=== PATIENT | female | born 1975 | race African-American/Black ===

== ENCOUNTER 2020-11-17 19:02 | Emergency (ER) | payer OTHER ==
[~2020-11-17] VITALS: Ht 163.8 cm; Wt 67.3 kg
--- NOTE | 2020-11-17 20:30 | PHYS DOC ---
General Adult EDM: Chief Complaint: CONGESTION HPI: HPI: Patient is a 44-year-old female coming in for congestion, headache, and occasional cough[place] have had been in a house with black mold. Was told by the nursing line to come to the ER for testing. Patient has had a Covid vaccine [place] get a Covid test. Review of Systems: Review of Systems: All other systems within normal limits except for as noted in the HPI Allergies: Allergies: Allergies Coded Allergies Type Severity Reaction Last Updated Verified lisinopril Allergy Unknown 11/17/20 Yes Physical Exam: PE: Constitutional: Well developed, well nourished, no acute distress, non-toxic appearance. [] HENT: Normocephalic, atraumatic, bilateral external ears normal, nose normal. [] Eyes: PERRLA, conjunctiva normal, no discharge. [] Neck: No rigidity, supple, no stridor. [] Cardiovascular: Regular rate and rhythm, brisk cap refill [] Lungs & Thorax: Non labored symmetric respirations, no tachypnea or respiratory distress [] Abdomen: Soft, nondistended. Skin: Warm, dry, no erythema, no rash. [] Back: Unremarkable Extremities: No deformities, range of motion grossly intact, no lower extremity edema [] Neurologic: Alert and oriented X 3, no focal deficits noted. [] Psychologic: Affect normal, judgement normal, mood normal. [] Current Patient Data: Vital Signs: Vital Signs Date Time Temp Pulse Resp B/P (MAP) Pulse Ox O2 Delivery O2 Flow Rate FiO2 11/17/20 19:18 98.1 88 18 135/83 (100) 100 Room Air EKG: EKG: [] Radiology/Procedures: Radiology/Procedures: [address] [address] IMAGING REPORT Signed PATIENT: JOURDAN DALTON LACCOUNT: [id number] : 1975 LOCATION: ER AGE: 44 SEX: F EXAM STATUS: PRE ER ORD. PHYSICIAN: OLGA MARIE MD REASON: cough PROCEDURE: CHEST PA & LATERAL EXAMINATION: Chest radiograph. VIEWS: 2 views COMPARISON: None INDICATION:44 years, Female, cough. FINDINGS: Normal cardiomediastinal silhouette. No focal consolidation. No pleural effusion or pneumothorax. No acute osseous process. IMPRESSION: No acute cardiopulmonary process. Electronically signed by: Angie Swann MD (11/17/2020 9:03 PM) [facility] DICTATED AND SIGNED BY: ANGIE SWANN MD DATE: 11/17/202102 CC: OLGA MARIE MD ~MTH0 0 [] Heart Score: C/O Chest Pain: No Risk Factors: Risk Factors: DM, Current or recent (<one month) smoker, HTN, HLP, family history of CAD, obesity. Risk Scores: Score 0 - 3: 2.5% MACE over next 6 weeks - Discharge Home Score 4 - 6: 20.3% MACE over next 6 weeks - Admit for Clinical Observation Score 7 - 10: 72.7% MACE over next 6 weeks - Early Invasive Strategies Course & Med Decision Making: Course & Med Decision Making Pertinent Labs and Imaging studies reviewed. (See chart for details) [] Dragon Disclaimer: Dragon Disclaimer: This electronic medical record was generated, in whole or in part, using a voice recognition dictation system. Departure Departure: Impression: Primary Impression: Person under investigation for COVID-19 Disposition: 01 HOME / SELF CARE / HOMELESS Condition: STABLE Referrals: [facility] Additional Instructions: You have been tested for or diagnosed with COVID-19. It is an infection caused by a new type of coronavirus. COVID-19 will cause cold-like or mild flu symptoms in most. It can cause more severe symptoms like problems breathing in some. There is no treatment for COVID-19. The body will clear the infection over time. Self-care will help to ease discomfort. Steps to Take: Self-Care Rest as needed. Healthy habits may help you feel better. Steps include: Choose healthy foods including fruits and vegetables. Drink water throughout the day. Get plenty of sleep each night. If you smoke, try to quit. It may ease breathing. Avoid alcohol. Keep Others Healthy The virus can spread to others. Droplets are released every time you sneeze or cough. The droplets can get into the mouth, nose, or eyes of people near you and lead to infection. To lower the chances of spreading COVID-19 to others: Stay at home until your doctor has said it is safe to leave. If you tested positive this will mean staying isolated until both of the following are true: At least 7 days have passed since the start of illness. You are free of fever for at least 72 hours without the use of medicine. During this time: - Avoid public areas, events, or transportation. Do not return to work or school until your doctor has said it is safe to do so. - Call ahead if you need to go to a medical center. Let them know you may have COVID-19. It will help them guide you where to go. They may also ask you to wear a facemask when you come to the office. - If you call for emergency medical services, let them know you may have COVID- 19. While at home: - Try to avoid close contact with others. Stay about 6 feet away. - If possible, spend most of your time in a separate room from others. - Use a face mask if you will be in close contact with others such as sharing a room or vehicle. - Have someone wipe down common surfaces in the home. Use household box printing machine operator every day on areas like doorknobs, counters, or sinks. - Cough or sneeze into a tissue. Throw the tissue away right after use. If a tissue is not available, cough or sneeze into your elbow. - Wash your hands often. Wash them after sneezing or coughing. Use soap and water and wash for at least 20 seconds. Alcohol based hand tack cleaner can be used if soap and water is not available. - Do not prepare food for others. Avoid sharing personal items like forks, sp oons, or toothbrushes. - Avoid close contact with pets while you are sick. There is no evidence of the virus passing to pets. This is a safety step until more is known about this virus. Isolation can be frustrating. Social interaction can help. Keep in touch with friends and family through phone and tech options. You can still interact with others in your home, just keep a safe distance of about 6 feet. Follow-up: Your doctors office will check in with you to see if there are any changes in your health. You may be asked to keep track of symptoms to share with them. They will also let you know when you are clear to be in public again. Problems to Look Out For: Contact your doctor if your recovery is not going as you expect. Get emergency care if you have problems such as: - Trouble breathing - Nonstop chest pain or pressure - Changes in awareness, confusion, or problems waking - Lips or face have bluish color - Worsening of symptoms If you think you have an emergency, call for emergency medical services right away. As taken from [facility] OLGA MARIE MD Nov 17, 2020 20:30
--- NOTE | 2020-11-17 21:06 | RAD ---
EXAMINATION: Chest radiograph. VIEWS: 2 views COMPARISON: None INDICATION:44 years, Female, cough. FINDINGS: Normal cardiomediastinal silhouette. No focal consolidation. No pleural effusion or pneumothorax. No acute osseous process. IMPRESSION: No acute cardiopulmonary process. Electronically signed by: Angie Swann MD (11/17/2020 9:03 PM) [facility]
[2020-11-17 21:35] VITALS: BP 130/82
--- NOTE | 2020-11-19 13:39 | NUR ---
IP: Informed mother of pt of negative covid test. She verbalized understanding
== END 2020-11-17 21:40 | disposition home or self-care (01) ==
LOC: ER 19:02
DX: R09.81 Nasal congestion (principal); R51.9 Headache, unspecified; R05 Cough; Z20.822 Contact with and (suspected) exposure to COVID-19; Z88.8 Allergy status to other drugs, medicaments and biological substances
CPT/HCPCS: 71046; 99284; C9803; U0003

== ENCOUNTER 2021-04-10 16:03 | Emergency (ER) | payer OTHER ==
[~2021-04-10] VITALS: Ht 162.6 cm; Wt 68.0 kg
[2021-04-10 16:19] VITALS: BP 142/102
--- NOTE | 2021-04-10 16:52 | RAD ---
EXAM: Chest, single view. HISTORY: Syncope. COMPARISON: 11/17/2020 FINDINGS: A frontal view of the chest is obtained. There is no infiltrate, pleural effusion or pneumo thorax. The heart is normal in size. IMPRESSION: No acute pulmonary finding. Electronically signed by: Mansi Roberts MD (04/10/2021 4:49 PM) [id number]
--- NOTE | 2021-04-10 16:58 | PHYS DOC ---
Past History Past Surgical History: Appendectomy, Cholecystectomy, Hysterectomy Additional Past Surgical Histo: L4, L5 fusion Alcohol Use: Occasionally General Adult EDM: Chief Complaint: SHORTNESS OF BREATH HPI: HPI: 45-year-old female presents with shortness of breath and syncopal episode. The patient has had a cough that started on the 14 of last month, 2 weeks after she had Covid. She has since tested negative for Covid twice. She still has this cough with sputum production. Today, she was walking down some stairs and believes she blacked out at the second stair. She fell down about four stairs. She woke up laying on the ground with some shoulder pain. She continues to feel short of breath at this time. She denies significant headache or neck pain. Review of Systems: Review of Systems: Constitutional: Denies fever or chills Eyes: Denies change in visual acuity HENT: Denies nasal congestion or sore throat Respiratory: Cough with shortness of breath Cardiovascular: Denies chest pain or edema GI: Denies abdominal pain, nausea, vomiting, bloody stools or diarrhea : Denies dysuria Musculoskeletal: Denies back pain or joint pain Integument: Denies rash Neurologic: Denies headache, focal weakness or sensory changes Endocrine: Denies polyuria or polydipsia Lymphatic: Denies swollen glands Psychiatric: Denies depression or anxiety Allergies: Allergies: Allergies Coded Allergies Type Severity Reaction Last Updated Verified lisinopril Allergy Unknown 11/17/20 Yes Physical Exam: PE: Constitutional: Well developed, well nourished, no acute distress, non-toxic appearance. [] HENT: Normocephalic, atraumatic, bilateral external ears normal, oropharynx moist, no oral exudates, nose normal. [] Eyes: PERRLA, EOMI, conjunctiva normal, no discharge. [] Neck: Normal range of motion, no tenderness, supple, no stridor. [] Cardiovascular: Heart rate regular rhythm, no murmur [] Lungs & Thorax: Coughing. Bilateral breath sounds diminished, mild expiratory wheeze right base. [] Abdomen: Bowel sounds normal, soft, no tenderness, no masses, no pulsatile masses. [] Skin: Warm, dry, no erythema, no rash. [] Back: No tenderness, no CVA tenderness. [] Extremities: No tenderness, no cyanosis, no clubbing, ROM intact, no edema. [] Neurologic: Alert and oriented X 3, normal motor function, normal sensory function, no focal deficits noted. [] Psychologic: Affect normal, judgement normal, mood normal. [] Current Patient Data: Vital Signs: Vital Signs Date Time Temp Pulse Resp B/P (MAP) Pulse Ox O2 Delivery O2 Flow Rate FiO2 04/10/21 16:19 98.4 90 22 142/102 (115) 98 Room Air EKG: EKG: [] Radiology/Procedures: Radiology/Procedures: [] Impressions: EXAM: Head CT without contrast. HISTORY: Fall. Syncope. TECHNIQUE: Computed tomographic images of the head were obtained without contrast. *One or more of the following individualized dose reduction techniques were utilized for this examination: 1. Automated exposure control. 2. Adjustment of the mA and/or kV according to patient size. 3. Use of iterative reconstruction technique. COMPARISON: None. FINDINGS: There is no acute or subacute extra-axial or intraparenchymal hemorrhage. There is no mass effect or midline shift. There is no hydrocephalus. The funez-white matter differentiation pattern is intact. There is cerebellar tonsillar ectopia measuring approximately abdomen inferior to the foramen magnum is associated with effacement of the extra-axial space at the foramen magnum. There is a slightly expanded empty or partially empty sella. IMPRESSION: 1. No acute intracranial finding. 2. 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 3. Expanded empty or partially empty sella. Electronically signed by: Mansi Petty MD (04/10/2021 4:57 PM) [id number] DICTATED AND SIGNED BY: MANSI PETTY MD DATE: 04/10/21 1655 CC: MARCIANO SAUL DO; TOREY BARRON CEMENT [employer]RO[employer] CAR LOADER ~MTH0 0 EXAM: Chest, single view. HISTORY: Syncope. COMPARISON: 11/17/2020 FINDINGS: A frontal view of the chest is obtained. There is no infiltrate, pleural effusion or pneumothorax. The heart is normal in size. IMPRESSION: No acute pulmonary finding. Electronically signed by: Mansi Petty MD (04/10/2021 4:49 PM) [id number] DICTATED AND SIGNED BY: MANSI PETTY MD DATE: 04/10/21 1649 CC: MARCIANO SAUL DO; TOREY BARRON APRN ~MTH0 0 Heart Score: C/O Chest Pain: N/A Risk Factors: Risk Factors: DM, Current or recent (<one month) smoker, HTN, HLP, family history of CAD, obesity. Risk Scores: Score 0 - 3: 2.5% MACE over next 6 weeks - Discharge Home Score 4 - 6: 20.3% MACE over next 6 weeks - Admit for Clinical Observation Score 7 - 10: 72.7% MACE over next 6 weeks - Early Invasive Strategies Course & Med Decision Making: Course & Med Decision Making Pertinent Labs and Imaging studies reviewed. (See chart for details) The patient's head CT shows no acute findings. She does have some chronic findings. See official read for details. Chest x-ray is negative for acute findings. I have given the patient 125 Solu-Medrol and duoneb treatment. Even though the patient does not have diagnosis of COPD or asthma, her presentation is consistent with reactive airway disease. I will treat her with albuterol MDI and steroids for home. She is stable for discharge at this time. [] Dragon Disclaimer: Dragon Disclaimer: This electronic medical record was generated, in whole or in part, using a voice recognition dictation system. Departure Departure: Impression: Primary Impression: Viral URI with cough Additional Impression: Bronchitis Disposition: 01 HOME / SELF CARE / HOMELESS Condition: STABLE Referrals: TOREY BARRON APRN (PCP) Patient Instructions: Acute Bronchitis, [id number], Upper Respiratory Infection, Adult, [id number] Scripts Prednisone (PREDNISONE) 50 Mg Tablet 1 TAB PO DAILY for bronchitis for 3 Days, #3 TAB Prov: MARCIANO SAUL DO 04/10/21 MARCIANO SAUL DO Apr 10, 2021 16:58
--- NOTE | 2021-04-10 17:07 | EKG ---
[address] [address] Test Date: 2021-04-10 Test Time: 16:56:46 Pat Name: JOURDAN DALTON Department: Room: Gender: F Multi Spindle Operator: MANOLO : 1975 Requested By: AMRCIANO SAUL Order Number: [id number] Reading MD: Florentin Addison MD Measurements Intervals [place] Rate: 75 P: 54 OR: 166 QRS: 2 QRSD: 70 T: 6 QT: 366 QTc: 411 Interpretive Statements SINUS RHYTHM Electronically Signed On 04-13-2021 8:26:51 CIGAR INSPECTOR by Florentin Addison MD
[2021-04-10] MEDS ORDERED: methylPREDNISolone SOD SUCC PF 125 MG/2 ML VIAL. IV ONE (17:15)
[2021-04-10 17:42] LABS: BASO # 0.1 x10^3/uL (0.0-0.2); BASO % 1 % (0-3); EOS # 0.2 x10^3/uL (0.0-0.7); EOS % 2 % (0-3); HEMATOCRIT 37.7 % (36.0-47.0); HEMOGLOBIN 12.2 g/dL (12.0-15.5); LYMPH # 3.9 x10^3/uL (1.0-4.8); LYMPH % 33 % (24-48); MEAN CORPUSCULAR HEMOGLOBIN 28 pg (25-35); MEAN CORPUSCULAR HGB CONC 33 g/dL (31-37); MEAN CORPUSCULAR VOLUME 87 fL (79-100); MONO # 0.8 x10^3/uL (0.0-1.1); MONO % 7 % (0-9); NEUT # 6.7 x10^3uL (1.8-7.7); NEUT % 57 % (31-73); PLATELET COUNT 231 x10^3/uL (140-400); RED BLOOD COUNT 4.33 x10^6/uL (3.50-5.40); RED CELL DISTRIBUTION WIDTH 14.2 % (11.5-14.5); WHITE BLOOD COUNT 11.6 x10^3/uL (4.0-11.0)
[2021-04-10 17:46] LABS: BARBITURATES NEG (NEG); BENZODIAZEPINES NEG (NEG); CANNABINOIDS POS (NEG); COCAINE NEG (NEG); METHADONE NEG (NEG); OPIATES NEG (NEG); PHENCYCLIDINE NEG (NEG)
[2021-04-10] MEDS ORDERED: PRED50TA PO (17:48)
[2021-04-10 17:51] LABS: AMPHETAMINE/METHAMPHETAMINE NEG (NEG)
[2021-04-10] MEDS ORDERED: ALBU2.5V8 IH (17:51)
[2021-04-10 17:55] LABS: CALCIUM 8.8 mg/dL (8.5-10.1); CREATININE 0.8 mg/dL (0.6-1.0); GFR 94.3; POTASSIUM 4.4 mmol/L (3.5-5.1)
[2021-04-10 17:59] LABS: BACTERIA,URINE 0 /HPF (0-FEW); BILIRUBIN,URINE NEG (NEG); CLARITY,URINE CLEAR; COLOR,URINE YELLOW; GLUCOSE,URINE NEG (NEG); NITRITE,URINE NEG (NEG); RBC,URINE 0 /HPF (0-2); SQUAMOUS EPITHELIAL CELL,UR OCC /LPF; UROBILINOGEN,URINE 0.2 mg/dL (0.2 mg/dL); WBC,URINE 0 /HPF (0-4)
[2021-04-10] MEDS ORDERED: ALBUTEROL SULFATE 8GM INHALER. INH ONE (18:00)
[2021-04-10 18:02] LABS: ALBUMIN 3.9 g/dL (3.4-5.0); ALBUMIN/GLOBULIN RATIO 1.3 (1.0-1.7); TOTAL BILIRUBIN 0.4 mg/dL (0.2-1.0); TOTAL PROTEIN 6.9 g/dL (6.4-8.2)
== END 2021-04-10 18:00 | disposition home or self-care (01) ==
LOC: ER 16:08
DX: J06.9 Acute upper respiratory infection, unspecified (principal); J40 Bronchitis, not specified as acute or chronic; M25.519 Pain in unspecified shoulder; Z88.8 Allergy status to other drugs, medicaments and biological substances; W10.8XXA Fall (on) (from) other stairs and steps, initial encounter; Y93.89 Activity, other specified; Y92.89 Other specified places as the place of occurrence of the external cause; Y99.8 Other external cause status
CPT/HCPCS: 36415; 70450; 71045; 80053; 80307; 81001; 84484; 85025; 93005; 94640; 96374; 99285; J2930; 94664